=== PATIENT | male | born 1990 | race Caucasian/White ===

== ENCOUNTER 2023-11-27 14:54 | Emergency (ER) | payer OTHER, SELFPAY ==
[2023-11-27 14:58] VITALS: BP 138/88
--- NOTE | 2023-11-27 15:01 | ED.GENMED ---
History of Present Illness
General
Chief Complaint: Crisis Evaluation
Time Seen by Provider: 11/27/23 15:01
History of Present Illness
History of Present Illness:
HPI: Patient came in by ambulance from [facility]. He went there a week ago and tells me he was there because he had threatening behavior toward his mother. Today, he received news that he would be there for the next 30
days which upset a more and he took the reinforcement part of a sheet and wrapped around his neck. He is rather vague about how long he had it around his neck for but has no symptoms other than feeling of a 'rash' to the anterior neck. He thinks
he was diagnosed with bipolar disorder when he was at a psychiatric facility when he was a kid but refused to take any medication. Corrections officers are currently at bedside
EXAM:
GENERAL: Well appearing in no distress
HEENT: Moist oral mucosa, no bruits to the anterior neck
CARDIOVASCULAR: No murmurs, normal heart rate, regular rhythm, No chest wall tenderness
PULMONARY: No respiratory distress, breath sounds are clear and equal
ABDOMEN: Soft with no peritoneal signs, no tenderness
NEUROLOGIC: Excellent strength all extremities, no coordination deficits
PSYCHIATRIC: Appears somewhat upset and withdrawn
EXTREMITIES: Nontender, no edema, moves all extremities equally, cuffs are noted to the lower extremities
SKIN: Patchy erythema noted to the anterior neck consistent with abrasion
TIME OF INITIAL ENCOUNTER: 3:05 PM
NUMBER AND COMPLEXITY OF PROBLEMS ADDRESSED AT THE ENCOUNTER
� Chronic conditions affecting care: Bipolar disorder
� Acute Exacerbation and/or Progression of Chronic Illness: This is an acute problem
� Differential Diagnosis includes: Exacerbation of bipolar disorder, gaby, substance abuse, neck injury unlikely as there is no 'hanging' mechanism of action but rather just direct compression.
AMOUNT AND/OR COMPLEXITY OF DATA TO BE REVIEWED AND ANALYZED
� I performed an independent evaluation of and my interpretation is:
EKG:
CT:
X-rays:
Laboratory Studies: CBC unremarkable, acetaminophen less than 10, bicarb slightly low at 19
Other:
� Review of other/old records: No old records available for review in [facility].
� Clinical information was obtained by an independent historian: I spoke to the officers with [facility]
� Prescriptions/Medications Considered but not given:
� Further testing considered but not performed: Considered CTA however there is no hanging mechanism and the patient only just tried to strangle himself but he is rather vague about the timeframe of how long this occurred. He
has no neurologic symptoms and no pain.
RISK OF COMPLICATIONS AND/OR MORBIDITY OR MORTALITY OF PATIENT MANAGEMENT
� Social determinants of health affecting care: Currently staying at [facility]
� Discussion with other providers: I discussed case with crisis at 3:10 PM and asked for consult. Crisis did evaluate patient and ultimately decision was made to have patient be closely watched at the present
� Escalation of care including admission/observation vs risk of discharge considered: Corrections officers remain in the room and have been there since arrival.
Phy Exam
Physical Exam
Physical Exam:
See HPI
Course
Orders/Labs/Results
Orders:
Orders
11/27/23 15:13
Crisis Consult Urgent
Reason for Consult: SI
11/27/23 15:59
Acetaminophen Urgent
Complete Blood Count/With Diff Urgent
Comprehensive Metabolic Panel Urgent
Abnormal Lab Results
11/27/23
15:59
MCH 32.7 H pg
(27.0-31.0)
RDW 11.0 L %
(11.5-14.5)
MPV 11.4 H fL
(7.4-10.4)
Absolute Neuts (auto) 6.7 H 10^3/uL
(1.4-6.5)
Neutrophils % 78.0 H %
(42.2-75.2)
Lymphocytes % 15.1 L %
(20.5-51.1)
Carbon Dioxide 19 L mmol/L
(22-30)
Acetaminophen < 10 L ug/ml
(10-30)
11/27/23 15:59
11/27/23 15:59
Vital Signs
Initial and Last Documented VS:
Initial Vital Signs
Pulse Ox
97
11/27/23 14:57
Last Documented Vital Signs
Temp Pulse Resp BP Pulse Ox
98.9 F 74 22 133/89 96
11/27/23 14:58 11/27/23 17:45 11/27/23 17:30 11/27/23 17:00 11/27/23 17:45
*Critical Care Note
Total Time (30-74mins, 75-104mins- exclusive of procedures): Not Applicable
ED Attending Note
-
Portions of this chart may have been created with voice recognition software.� Occasional wrong word or��sound alike� substitutions may have occurred due to the inherent limitations of voice recognition software.
Discharge Plan
Departure
Patient Disposition: Senior Care
Date of Disposition: 11/27/23
Time of Disposition: 17:36
Discharge Problem:
Suicide gesture
Referrals:
[facility] [Family Provider] -
Activity Restrictions/Additional Instructions:
Patient is to stay on a suicide watch at the present. Basic labs are relatively unremarkable
Interventions
Interventions:
*Risk Screen - Suicide Last Done: 11/27/23 14:58
*General Assessment Last Done: 11/27/23 14:58
*Neglect/Abuse Screening Last Done: 11/27/23 14:58
ED- Fall Risk Assessment Last Done: 11/27/23 18:29
*ED COVID-19 Vaccine History Last Done: 11/27/23 18:29
*Nursing Disposition Last Done: 11/27/23 18:29
ED-Psychological Assessment Last Done: 11/27/23 15:11
Discharge Date and Time
Discharge Date/Time: 11/27/23 18:30
Print Language: SWEDISH
[2023-11-27 16:00] VITALS: BP 138/99
[2023-11-27 16:09] LABS: % Basophils 0.9 % (0-2); % Eosinophils 0.6 % (0-6); % Immature Granulocytes 0.5 % (0-0.5); % Lymphocytes 15.1 % (20.5-51.1); % Monocytes 4.9 % (1.7-9.3); Absolute Basophils 0.1 10^3/uL (0-0.2); Absolute Eosinophils 0.1 10^3/uL (0-0.7); Absolute Lymphocytes 1.3 10^3/uL (1.2-3.4); Absolute Monocytes 0.4 10^3/uL (0.1-0.6); Absolute Neutrophils 6.7 10^3/uL (1.4-6.5); Hematocrit 45.8 % (39.0-52.0); Hemoglobin 16.7 g/dL (13.0-18.0); Mean Corp Hgb Conc. 36.5 g/dL (33.0-37.0); Mean Corpuscular Hgb 32.7 pg (27.0-31.0); Mean Corpuscular Volume 89.6 fL (80.0-94.0); Mean Platelet Volume 11.4 fL (7.4-10.4); Nucleated Red Blood Cells % 0 % (-); Platelet Count 176 10^3/uL (130-400); Red Blood Cell Count 5.11 10^6/uL (4.70-6.10); White Blood Cell Count 8.6 10^3/uL (4.8-10.8)
[2023-11-27 16:22] LABS: ALT (SGPT) 27 U/L (0-50); AST (SGOT) 21 U/L (17-59); Acetaminophen < 10 ug/ml (10-30); Alkaline Phosphatase 56 U/L (38-126); Blood Urea Nitrogen 13 mg/dl (9-20); Calcium 9.9 mg/dl (8.4-10.2); Carbon Dioxide 19 mmol/L (22-30); Glucose 81 mg/dl (70-99); Total Bilirubin 1.2 mg/dl (0.2-1.3); Total Protein 7.4 g/dl (6.3-8.2); eGFR > 60.00
[2023-11-27 17:00] VITALS: BP 133/89
[2023-11-27 18:08] LABS: Chloride 106 mmol/L (98-107); Sodium 138 mmol/L (135-145)
== END 2023-11-27 18:30 ==
LOC: EMR 14:54
PROVIDERS: EMERGENCY PHYSICIAN Emergency Medicine
DX: T14.91XA Suicide attempt, initial encounter (principal); S10.91XA Abrasion of unspecified part of neck, initial encounter; X83.8XXA Intentional self-harm by other specified means, initial encounter; Y92.149 Unspecified place in prison as the place of occurrence of the external cause; F31.9 Bipolar disorder, unspecified
CPT/HCPCS: 99285; 80053; 80143; 85025